=== PATIENT | female | born 1995 | race African-American/Black ===

== ENCOUNTER 2019-01-10 11:36 | Emergency (ER) | payer OTHER ==
[2019-01-10] MEDS ORDERED: Ibuprofen TAB* 800 MG PO ONE (14:02)
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
[2019-01-10 15:47] VITALS: BP 125/82
== END 2019-01-10 15:45 | disposition home or self-care (01) ==
LOC: ED 11:36
DX: S39.012A Strain of muscle, fascia and tendon of lower back, initial encounter (principal); S43.102A Unspecified dislocation of left acromioclavicular joint, initial encounter; V47.5XXA Car driver injured in collision with fixed or stationary object in traffic accident, initial encounter; Y92.488 Other paved roadways as the place of occurrence of the external cause
CPT/HCPCS: 72110; 99282; A9270-GY